=== PATIENT | female | born 1980 | race African-American/Black ===

== ENCOUNTER 2019-09-05 10:46 | Outpatient (RCR) | payer BC, MEDICAID, SELFPAY ==
[2019-08-08 12:30] VITALS: BP 110/64; PULSE 94
[2019-08-22 12:10] VITALS: BP 119/73; PULSE 91
[2019-08-29 12:31] VITALS: BP 122/76; PULSE 104
--- NOTE | ~2019-09-05 | US_ITS ---
EXAMINATION: US OB follow up DATE: 08/08/2019 13:02 INDICATION: Advanced maternal age. Third trimester . TECHNIQUE: Real-time ultrasound of the pelvis was performed. The interpreting radiologist was not pre sent for the study. COMPARISON: None. FINDINGS: There is a single living fetus in vertex presentation. The placenta is fundal and not low-lying. Fet al heart rate is 142 beats per minute (bpm). The amniotic fluid index is 14.1 cm, which is normal (5 th%-95%: 8.1-24.8 cm at 34 weeks estimated gestational age). The following biometric data were obtained: BPD: 8.0 cm -> 32 weeks 0 days Head circumference: 30.3 cm -> 33 weeks 5 days Abdominal circumference: 29.1 cm -> 33 weeks 1 days Femur length: 6.4 cm -> 33 weeks 0 days These measurements are concordant. Head circumference to abdominal circumference ratio: 1.04 (normal range 0.96-1.11). Estimated weight: 2108 g (+/-) 316 g. or 4 lbs. 10 oz. (+/-) 11 oz. IMPRESSION: 1. Single living fetus in vertex presentation with heart rate of 142 bpm. 2. Gestational age by ultrasound of 33 weeks 0 day(s) +/- 2 week(s) 2 day(s) with ultrasound estimate d date of delivery (CAN) of 09/26/2019. Estimated weight is 19th percentile by Hadlock criteria w hen 09/19/2019 is used as the CAN. Please correlate with clinical information or earlier ultrasounds f or most accurate CAN. 3. Normal amniotic fluid index of 14.1 cm. Reviewed, dictated and finalized at location A. IMPRESSION: 1. Single living fetus in vertex presentation with heart rate of 142 bpm. 2. Gestational age by ultrasound of 33 weeks 0 day(s) +/- 2 week(s) 2 day(s) wi th ultrasound estimated date of delivery (CAN) of 09/26/2019. Estimated samantha ght is 19th percentile by Hadlock criteria when 09/19/2019 is used as the CAN. P lease correlate with clinical information or earlier ultrasounds for most accur ate CAN. 3. Normal amniotic fluid index of 14.1 cm.
--- NOTE | ~2019-09-05 | US_ITS ---
EXAMINATION: US OB BPP wo non-stress DATE: 09/05/2019 11:44 INDICATION: Advanced maternal age, third trimester TECHNIQUE: Real-time pelvic ultrasound was performed. The interpreting radiologist was not present fo r the study. COMPARISON: 08/29/2019 FINDINGS: There is a single living fetus in vertex presentation. The placenta is fundal. heart rate is 13 7 beats per minute (bpm). Biophysical profile performed by the technologist: breathing (30 sec sustained breathing in 30 minutes): 2 out of 2 movement (3 gross body movements in 30 minutes): 2 out of 2 tone (one episode of xmxdicw-ikopwohct-dbbmxob limb movement): 2 out of 2 Amniotic fluid pocket (2 cm): 2 out of 2 Total score: 8 out of 8 IMPRESSION: 1. Single living fetus in vertex presentation. 2. Biophysical profile 8 out of 8. Reviewed, dictated and finalized at location A.
--- NOTE | ~2019-09-05 | US_ITS ---
EXAMINATION: US OB BPP wo non-stress DATE: 08/29/2019 12:07 CDT INDICATION: Evaluate well-being TECHNIQUE: Real-time transabdominal obstetric ultrasound. FINDINGS: 08/08/2019 There is a single living fetus in vertex presentation. The placenta is fundal without placenta previ a. cardiac activity and movement is noted with a heart rate of 144 beats per minute. Biophysical profile: breathin of 2 movement: 2 of 2 tone: 2 of 2 Amniotic flud pocket: 2 of 2 Total score: 8 of 8 IMPRESSION: 1. Single living intrauterine in vertex presentation. 2: Total biophysical profile score of 8/8. Reviewed, dictated and finalized at location A.
[2019-09-05 11:50] VITALS: BP 120/70; PULSE 94
== END 2019-09-27 13:44 | disposition home or self-care (01) ==
LOC: ANHOBOP 10:46
PROVIDERS: PCP Nurse Practitioner Family; Visit Provider Obstetrics & Gynecology
DX: O09.899 Supervision of other high risk pregnancies, unspecified trimester (principal); O09.513 Supervision of elderly primigravida, third trimester; Z3A.34 34 weeks gestation of pregnancy; Z3A.35 35 weeks gestation of pregnancy; Z3A.36 36 weeks gestation of pregnancy; Z3A.37 37 weeks gestation of pregnancy; Z3A.38 38 weeks gestation of pregnancy
CPT/HCPCS: 59025; 76816; 76819

== ENCOUNTER 2019-09-13 05:25 | Inpatient (IN) | payer BC, MEDICAID, SELFPAY ==
[2019-09-13] VITALS (175 sets, daily range): BP systolic 77–134; BP diastolic 30–88; PULSE 84–124; TEMP 36.6–37.3; O2SAT 93–100; BMI 33.5
[2019-09-13 06:27] LABS: Basophils Percent Auto 0.1 % (0.2-1.2); Eosinophils Absolute Auto 0.1 K/mm3 (0-0.3); Eosinophils Percent Auto 0.9 % (0-4.4); Hematocrit 40.5 % (37.0-47.0); Hemoglobin 13.7 g/dL (12.0-15.0); Immature Granulocyte Absolute 0.02 K/mm3 (0.00-0.031); Immature Granulocyte Percent A 0.3 % (0-0.5); Lymphocytes Absolute Auto 2.62 K/mm3 (0.9-3.2); Mean Corpuscular HGB Conc 33.8 g/dl (32-36); Mean Corpuscular Hemoglobin 29.3 pg (26-34); Mean Corpuscular Volume 86.5 fl (80-100); Mean Platelet Volume 11.7 fl (7.4-10.4); Monocytes Absolute Auto 0.5 K/mm3 (0.1-0.6); Monocytes Percent Auto 7.2 % (2.6-8.5); Neutrophils Absolute Auto 3.7 K/mm3 (1.3-6.7); Neutrophils Percent Auto 53.5 % (45.5-73.1); Platelet Count Result 150 k/mm3 (150-375); Red Blood Count 4.68 M/mm3 (4.2-5.4); Red Cell Distribution Width 14.3 % (11.5-14.5); White Blood Count 6.9 K/mm3 (4.5-10.0)
[2019-09-13] MEDS: LACTATED RINGERS 1,000 ML 125 ML IV CONT ×3 (06:38→20:54)
[2019-09-13] MEDS: OXYTOCIN 30 UNITS/NS 500 ML 30 UNITS/500 ML BAG IV CONT (06:39)
--- NOTE | 2019-09-13 06:41 | LDADM ---
This patient, Sandy White, was admitted to Labor/Delivery/Recovery 104 on 09/13/19 at 05:25. Plans for labor, pain management and were discussed with patient. Patient/family oriented to hospital policies and general routines including ID bracelet, bed and alarms, visiting hours, pain management, procedures, bathroom and other care routines, personal items, smoking policy, room service/diet and guest tray routines, infant security routines, and visiting hours. Patient/Family are encouraged to report perceived risks to care and to ask questions if they do not understand what they are told or what they should do. See OBIX for further documentation.
--- NOTE | 2019-09-13 08:00 | PM.IMHP ---
H&P: HPI History of Present Illness Chief complaint: Ind Narrative: Sandy White is a 39 yo @ 39.1wks for induction of labor 2/2 AMA. She reports occasional cramping/back pains. She feels good movment. No LOF or VB. Her is complicated by: 1. AMA s/p MFM consult and negative genetic 2. H/o daughter w/ T21 3. Elevated glucola, normal 3hr OGTT Review of Systems Constitutional: Constitutional: Denies body ache(s) and Denies night sweats Eyes: Eyes: Denies blurry vision Cardiovascular: Cardiovascular: Denies chest pain and Denies palpitations Respiratory: Respiratory: Denies cough and Denies dyspnea Gastrointestinal: Gastrointestinal: Denies nausea and Denies vomiting Genitourinary: Genitourinary: Denies vaginal discharge Musculoskeletal: Musculoskeletal: Reports back pain Neurologic: Denies headache(s) Psychiatric: Psychiatric: Denies anxiety PMFSH Past Medical History Medical History (Updated 09/13/19 @ 12:32 by Rut Chopra MD) Obesity (BMI 30-39.9) Family History Family History Mother No problems noted. Father Hypertension Father Cerebrovascular accident Daughter Down syndrome Father Tetralogy of Fallot Grandparent Diabetes mellitus Social History Social History Smoking status: Never smoker Substance use: never Gender identity (if verbalized by the patient): Female Spiritual care concerns: No Meds Home Medications and Allergies Home Medications Medication Instructions Recorded Confirmed Type PNV cmb#95-ferrous fumarate-FA 1 tablet PO DAILY 08/22/19 09/13/19 History [] Allergies Allergy/AdvReac Type Severity Reaction Status Date / Time No Known Allergies Allergy Verified 08/22/19 12:19 Vital Signs Vital Signs - 24 hr 09/13/19 05:47 09/13/19 06:00 09/13/19 06:15 Temperature Pulse Rate 89 92 87 Blood Pressure 103/67 118/75 122/71 09/13/19 06:30 09/13/19 06:46 09/13/19 07:00 Temperature 36.9 C Pulse Rate 87 89 84 Blood Pressure 119/82 120/73 113/72 09/13/19 07:15 09/13/19 07:30 09/13/19 07:45 Temperature Pulse Rate 93 85 90 Blood Pressure 112/79 101/55 L 100/62 Exam Const: General: comfortable and no acute distress Resp: Effort & Inspection: normal respiratory effort Cardio: Rate: regular rate GI: GI Palp: Yes Soft to palpation and No Tenderness to palpation present (GI) : Other: FHT's: 140's/ mod claribel/ + accels/ no decels - cat I TOCO: ctx's q 2 min Cervix: /-3 --> 06/19/-3 (1220) Membranes: arom, clear @ 1220 on 09/13/19 Neuro: Speech: normal speech Psych: Affect: normal affect H&P: Results Labs Labs: Short CBC 09/13/19 Range/Units 06:21 WBC 6.9 (4.5-10.0) K/mm3 Hgb 13.7 (12.0-15.0) g/dL Hct 40.5 (37.0-47.0) % Plt Count 150 (150-375) k/mm3 Assessment and Plan Assessment and plan (1) Encounter for induction of labor: Code(s): Z34.90 - Encounter for supervision of normal , unspecified, unspecified trimester Status: Acute (2) Advanced maternal age (AMA), 40 years or greater: Status: Acute Additional Plan - Admit to L&D for induction of labor - Continue Pitocin protocol to obtain ctx's q2-3 min - Continuous monitoring; currently reassuring, category 1 - AROM, clear @ 1220 on 09/13/19 - GBS negative - Anesthesia PRN pain; pt currently desires to go all natural
--- NOTE | 2019-09-13 08:11 | WPDANESEPP ---
Anes - Eval Pre Procedure Procedure: Labor epidural Date/Time: 09/13/19 08:11 Surgeon: Rut Chopra M.D. Preop Diagnosis: pain during labor Pre Op Diagnosis: Ind Patient Data Age: 39 Gender: F Height: 1.57 m Weight: 83 kg Last Vital Signs Temp 36.9 C 09/13/19 06:30 Pulse 88 09/13/19 08:00 BP 102/63 09/13/19 08:00 Allergies Allergy/AdvReac Type Severity Reaction Status Date / Time No Known Allergies Allergy Verified 08/22/19 12:19 Home Medications Medication Instructions Recorded Confirmed Type PNV cmb#95-ferrous fumarate-FA 1 tablet PO DAILY 08/22/19 09/13/19 History [] Laboratory Tests 09/13/19 09/13/19 09/13/19 06:21 06:21 06:21 WBC 6.9 K/mm3 K/mm3 (4.5-10.0) RBC 4.68 M/mm3 M/mm3 (4.2-5.4) Hgb 13.7 g/dL g/dL (12.0-15.0) Hct 40.5 % % (37.0-47.0) MCV 86.5 fl fl (80-100) MCH 29.3 pg pg (26-34) MCHC 33.8 g/dl g/dl (32-36) RDW 14.3 % % (11.5-14.5) Plt Count 150 k/mm3 k/mm3 (150-375) MPV 11.7 fl H fl (7.4-10.4) Immature Gran % (Auto) 0.3 % % (0-0.5) Neut % (Auto) 53.5 % % (45.5-73.1) Lymph % (Auto) 38.0 % % (18.3-44.2) Boundary % (Auto) 7.2 % % (2.6-8.5) Eos % (Auto) 0.9 % % (0-4.4) Baso % (Auto) 0.1 % L % (0.2-1.2) Lymph # (Auto) 2.62 K/mm3 K/mm3 (0.9-3.2) Boundary # (Auto) 0.5 K/mm3 K/mm3 (0.1-0.6) Eos # (Auto) 0.1 K/mm3 K/mm3 (0-0.3) Baso # (Auto) 0.0 K/mm3 K/mm3 (0.0-0.1) Abs Immat Gran (auto) 0.02 K/mm3 K/mm3 (0.00-0.031) Absolute Neuts (auto) 3.7 K/mm3 K/mm3 (1.3-6.7) Absolute Nucleated RBC 0.0 K/mm3 K/mm3 (0.0-0.012) Nucleated RBC % 0.0 % % (0.0-0.2) RPR Pending Blood Type A Positive Antibody Screen Negative Patient hx anesthesia problems: none Family hx anesthesia problems: none PMFSH Past Medical History Medical History (Updated 09/13/19 @ 08:11 by Rosita Oliver CRNA) Obesity (BMI 30-39.9) Family History Family History Mother No problems noted. Father Hypertension Father Cerebrovascular accident Daughter Down syndrome Father Tetralogy of Fallot Grandparent Diabetes mellitus Social History Social History Smoking status: Never smoker Substance use: never Gender identity (if verbalized by the patient): Female Spiritual care concerns: No Exam Day of Procedure 09/13/19 08:11
[2019-09-13 09:48] LABS: Rapid Plasma Reagin Non-Reactive (NonReactive)
[2019-09-13] MEDS: SODIUM CHLORIDE 0.9% IV 300 ML I-UTERINE (17:11)
[2019-09-14] VITALS (22 sets, daily range): BP systolic 92–139; BP diastolic 50–80; PULSE 80–188; RESP 16; TEMP 36.6–36.9; O2SAT 98–100
--- NOTE | 2019-09-14 00:34 | PM.OBPRVD ---
OB - Delivery Note Procedure Delivery date: 09/14/19 Procedure: Patient progressed to complete dilation and began pushing with good maternal effort. she delivered the head over an intact perineum. no nuchal cord was palpated and the shoulders and body delivered without complications. the infant was immediately placed skin to skin. the mouth and nose were bulb suctioned and the baby had spontaneous cry. the umbilical cord was then clamped and cut. a section of the umbilical cord was collected for cord gases and the remaining cord blood was collected for typing. with Pitocin running and gentle traction on the cord, the placenta delivered without complications. good uterine tone and minimal bleeding were noted. the cervix, vagina, and perineum were inspected. bilateral periurethral lacerations were noted and reapproximated using interrupted 3 0 Vicryl stitches, and good hemostasis was noted. sponge, lap, needle, and instrument counts were correct at the end procedure. mom and baby were left bonding in the birthing suite in a stable condition. events: Labor Induction Induction method: per pitocin protocol Delivery augmentation: rupture of membranes Delivery monitor: external FHT and internal uterine Route of delivery: Laceration description: Periurethral - 1st Degree Delivery repair: vicryl Specimen: Yes Estimated blood loss (mL): 100 Anesthesia type: Epidural Disposition: floor Baby Date of : 09/14/19 Time of : 00:15 Weeks of gestation at delivery: 39 gender: Female Weight (pounds): 7 Weight (ounces): 2 presentation: vertex position: Left Occiput Anterior Placenta delivery description: Expressed cord vessel description: 3 Vessels score one minute: 9 score five minutes: 9
[2019-09-14] MEDS: WITCH HAZEL 40 PADS 1 PAD TOPICAL (00:50)
[2019-09-14] MEDS: BENZOCAINE 20% AER SPR (*SP) 56 GM CAN 1 SPRAY TOPICAL (00:50)
[2019-09-14] MEDS: OXYTOCIN 30 UNITS/NS 500 ML 30 UNITS/500 ML BAG 125 UNITS (00:51)
[2019-09-14] MEDS: LANOLIN (LANSINOH) 7.5 GM CREAM 1 APPLIC TOPICAL (00:51)
--- NOTE | 2019-09-14 06:10 | PC.NURSE ---
Report given and care turned over to James Pa RN
--- NOTE | 2019-09-14 13:15 | PC.NURSE ---
PT arrived on unit via wheelchair accompanied by and taken to room 290. Pt oriented to room and surrounding area. PT introductions made and plan of care discussed per post , pain management, breast feeding, and daily care activities.Welcome packet reviewed and discussed. PT verbalized understanding of such care.
[2019-09-15 05:34] LABS: Hematocrit 37.1 % (37.0-47.0); Hemoglobin 12.2 g/dL (12.0-15.0)
--- NOTE | 2019-09-15 07:00 | PC.NURSE ---
PT introductions made and plan of care discussed per post , pain management, breast feeding, daily care activities and pending discharge to home. PT verbalized understanding of such care.
[2019-09-15 09:00] VITALS: BP 107/70; PULSE 75; RESP 18; TEMP 37.1; O2SAT 100
--- NOTE | 2019-09-15 09:41 | WPDANLDPN2 ---
Anes-Prog Note L&D Date/Time: 09/15/19 09:41 Comfortable throughout: labor and delivery Neuraxial method: epidural Epidural/Spinal procedure site: clean & non-tender Neuro status: Neuro function grossly intact. Cardiovascular status: normal Respiratory status: normal Airway patency: baseline Mental status: baseline Post-Op hydration status: normal Vital Signs: Last Vital Signs Temp 36.6 C 09/14/19 19:19 Pulse 80 09/14/19 19:19 Resp 16 09/14/19 19:19 BP 98/68 L 09/14/19 19:19 Pulse Ox 98 09/14/19 03:10 Post-procedural complaints: none Patient feedback: Patient satisfied with anesthetic care.
[2019-09-15] MEDS: TETANUS,DIPHTHERIA,AC PERTUSSIS ADULT (0.5 ML) BOOSTRIX IM (09:56)
[2019-09-15] MEDS: DOCUSATE SODIUM 100 MG CAPSULE PO ×2 (09:57→17:11)
[2019-09-15] MEDS: MULTIVIT/MIN/PREN/FOL AC/IRON TABLET 1 TAB PO (09:57)
[2019-09-15 09:58] VITALS: PULSE 75; RESP 18; O2SAT 100
[2019-09-15] MEDS: IBUPROFEN 600 MG TABLET PO ×2 (09:58→17:11)
--- NOTE | 2019-09-15 12:00 | PC.NURSE ---
Mother called out for assist with latch, due to pain with feeding. Both nipples are tender, skin is intact. Reviewed infant feeding cues, frequencies, duration of feedings, feeding elimination flow sheet, and signs of adequate intake. Demonstrated stimulation techniques to wake for feeding. Assisted with infant to breast. Mother was attempting to breast in cradle allowing to attempt to self attach with a shallow latch. Reviewed positioning/alignment in cross cradle, holding breast in U hold and guided asymmetrical latch on. Discussed rational for each. Infant was able to latch correctly with first attempt. Infant nursed eagerly, with steady draws and frequent swallowing noted. Reviewed signs of a correct latch, effective nursing and suck swallow ratio. Infant was able to maintain latch without discomfort to mother. Nipple care reviewed. Discussed holding breast during entire feeding to assist maintaining deep latch. Suggested to stimulate infant to keep awake and nursing effectively for increased intake. Instructed mother to call out for RN assistance if she is unable to latch for feeding or she has discomfort with nursing. Instructed feeding should be initiated three hours from start of last feeding or if feeding cues are noted before. Mother voiced understanding of information shared.
--- NOTE | 2019-09-15 12:03 | PM.OBPNVD ---
OB - PN: Subj Subjective Date/time seen: 09/15/19 12:02 Sandy is a 39yo now P2002 s/p , PPD#1 Sandy reports she is doing well today. She reports her pain is controlled. She is tolerating regular diet. She is voiding and passing flatus. She is ambulating w/o s/sx of anemia. Her bleeding is picking supervisor. She is breast feeding. She would like to go home today. OB - PN: Obj Data Labs CBC & Chem 7: 09/15/19 04:47 Labs: Laboratory Results - last 24 hr 09/15/19 04:47 Hgb 12.2 Hct 37.1 OB - PN A/P Assessment and Plan (1) Advanced maternal age (AMA), 40 years or greater: Status: Acute (2) Normal vaginal delivery: Code(s): O80 - Encounter for full-term uncomplicated delivery Status: Acute Plan day: 1 Plan: routine care and discharge home Comments: - follow up in 4 weeks - discharge instructions discussed: Return to ER for N/V/severe abd pain, heavy vaginal bleeding, s/sx of PEC, pelvic rest, take medications as prescribed. Time Spent With Patient Time: Total time spent is greater than 50% in coordination of care (as documented) at patient's floor/unit and/or counseling patient: Review of Systems Constitutional: Constitutional: Denies chills Cardiovascular: Cardiovascular: Denies rapid heart rate Respiratory: Respiratory: Denies cough and Denies dyspnea Gastrointestinal: Gastrointestinal: Denies abdominal pain, Denies nausea and Denies vomiting Genitourinary: Genitourinary: Reports pelvic pain Neurologic: Denies headache(s) Exam Const: General: comfortable, no acute distress, alert and awake Orientation/consciousness: patient oriented x3 Chest: Breast/axilla inspection: normal inspection of the breasts Resp: Effort & Inspection: normal respiratory effort Auscultation: clear to auscultation bilaterally Cardio: Rate: regular rate GI: Auscultation: normal bowel sounds : Other: fundus firm at umbilicus Psych: Appearance: grossly normal Affect: normal affect Attitude: cooperative
--- NOTE | 2019-09-15 17:36 | PC.NURSE ---
PT discharged to home ambulatory accompanied by infant to waiting car. Follow up appts confirmed
--- NOTE | 2019-09-15 18:58 | PC.NURSE ---
Addendum entered by Eriberto Asif RN 09/15/19 18:59: Actual time of discharge instructions was 1700 Original Note: Pt received discharge instructions per protocol and verbalized understanding of such care. Patient was given the opportunity to view the discharge video Mother & Baby Care, The First Two Weeks and to ask questions. Patient declined viewing the video and has been given the mother/baby guide for home reference.
[2019-09-16 08:13] VITALS: BP 116/82; PULSE 82; RESP 20; TEMP 36.8; O2SAT 100
--- NOTE | 2019-09-26 11:02 | PM.OBDSVD ---
DS: Admitting Diagnosis Admitting Diagnosis Admitting Diagnosis: Encounter for supervision of normal , unspecified, third trimester DS: Discharge Diagnosis Discharge Diagnosis (1) Advanced maternal age (AMA), 40 years or greater: Status: Acute (2) Obesity (BMI 30-39.9): Code(s): E66.9 - Obesity, unspecified Status: Acute (3) Normal vaginal delivery: Code(s): O80 - Encounter for full-term uncomplicated delivery Status: Acute OB - DS: Summary OB Procedures : NST and Ultrasound OB Procedures Intrapartum: Spontaneous Vag Delivery OB Procedures: : None Peripartum Data Infant Delivery Method: Natural Vaginal complications: none [place] 1: Gender: Female Disposition of : home Status at Discharge Functional status at discharge: independent ambulation Time Spent with Patient Time attestation: Total time spent providing and/or coordinating discharge services: Exam Const: General: comfortable, no acute distress, alert and awake Orientation/consciousness: patient oriented x3 Resp: Effort & Inspection: normal respiratory effort Cardio: Rate: regular rate GI: Inspection: non-distended GI Palp: Yes Soft to palpation and No Tenderness to palpation present (GI) Auscultation: normal bowel sounds Psych: Appearance: grossly normal Affect: normal affect Thought content: Yes Normal thought content present Judgement: Good judgement present (Psych) DS: Data Data Completed and Pending Completed studies during hospitalization: Pending at discharge 09/14/19 00:19 Surgical [PTH] Routine Discharge Plan Discharge Attending physician on discharge: Rut Chopra Discharging Clinician: Rut Chopra Anticipated Discharge Date/Time: 09/15/19 16:00 Patient Disposition: Home, Self-Care Activity: pelvic rest Diet: regular Discharge Instructions: Education: Mom and Baby Guide Given to: Mother Follow-Up: Call your delivering provider's office for an appointment to be seen in: 4 Weeks Mom [facility] the follow-up appointment. Appointment Date/Time: September 16, 2019 at 8:00 am What to expect at your follow-up visit: Blood Pressure Check Call [phone] if you are unable to keep your appointment time. BREAST CARE: 1. Wear a snug supportive bra. 2. For engorgement discomfort: Breast Feeding: A. Apply warm moist washcloths B. Express milk as needed to relieve engorgement C. Wear loose clothing Bottle Feeding: A. May apply ice packs 3. For sore nipples: A. Identify correct latch-on B. Apply warm moist washcloths before and after nursing C. Air dry nipples after nursing D. May apply Lansinoh cream to nipples PERINEAL CARE: 1. Until bleeding stops, use your geno bottle after urinating 2. Change your pad frequently throughout the day 3. You may take sitz baths several times a day (fill your bathtub with warm water and soak for 20 minutes.) Do NOT bathe in the water 4. No tub baths until seen by your physician - You may shower ACTIVITY: 1. Rest as much as possible. 2. Do not exercise or lift anything heavier than your baby (such as laundry or other children.) 3. Avoid stairs or driving as much as possible. 4. Do not put anything into the vagina. No douching, tampons, or sexual activity until seen by physician. NOTIFY PHYSICIAN IF YOU HAVE ANY QUESTIONS OR IF ANY OF THE FOLLOWING SYMPTOMS OCCUR: 1. If your perineum becomes red, swollen, or more painful than what you have experienced in the hospital. 2. If your vaginal bleeding becomes foul smelling. 3. If your vaginal bleeding becomes more heavy than a period or if your bleeding changes from pink to bright red. However, you may pass an occasional walnut-sized clot once or twice for the first week . 4. If you
== END 2019-09-15 17:36 | disposition home or self-care (01) | DRG 807 ==
LOC: ANHLDR 05:33 → ANHOBPP 09-14 03:05 → ANHOB2 09-14 13:42
PROVIDERS: Admitting Provider Obstetrics & Gynecology; PCP Nurse Practitioner Family; Visit Provider Obstetrics & Gynecology
DX: O99.214 Obesity complicating childbirth (principal); Z37.0 Single live birth; Z3A.39 39 weeks gestation of pregnancy; E66.9 Obesity, unspecified; O71.82 Other specified trauma to perineum and vulva
CPT/HCPCS: 36415; 85014; 85018; 85025; 86592; 86850; 86900; 86901; 88307; 90715; A9270; J2590; J2795; J3010; J7030; J7120

== ENCOUNTER 2020-02-02 13:36 | Outpatient (CLI) | payer BC, OTHER, SELFPAY ==
--- NOTE | ~2020-02-02 | MMUS_ITS ---
EXAMINATION: MM diagnostic bianca BI w salud, US breast RT limited HISTORY: Palpable lump of the upper inner right breast. TECHNIQUE: Craniocaudal, mediolateral, and mediolateral oblique 3-D tomosynthesis images of the breas ts were performed and synthetic 2-D images were generated. CAD analysis was submitted and interpreted . High resolution limited right breast ultrasound was performed. COMPARISON: None, baseline BREAST PARENCHYMAL COMPOSITION: There are scattered areas of fibroglandular density. FINDINGS: MAMMOGRAPHIC FINDINGS: There is no evidence of suspicious mass, calcification, or architectural distortion to suggest malig oziel. No mammographic correlate is identified for the reported palpable abnormality of the right fabi ast. ULTRASOUND: There is no evidence of focal abnormal solid or cystic lesion in the vicinity of the reported palpabl e abnormality of concern. IMPRESSION: 1. No specific mammographic or sonographic correlate is identified for the reported palpable abnormal ity of concern. Further evaluation at this time should be based on clinical assessment. Continued fol low-up physical examination is recommended. 2. Recommend routine screening mammography in one year. BI-RADS Category 1: Negative Reviewed, dictated and finalized at location A. UTER SUPPORT SPECIALIST IMPRESSION: 1. No specific mammographic or sonographic correlate is identified for the repo rted palpable abnormality of concern. Further evaluation at this time should be based on clinical assessment. Continued follow-up physical examination is franko mmended. 2. Recommend routine screening mammography in one year. BI-RADS Category 1: Negative
== END 2020-02-02 13:37 | disposition home or self-care (01) ==
LOC: ANHIMG 13:38
PROVIDERS: PCP Nurse Practitioner Family; Visit Provider Obstetrics & Gynecology
DX: N63.10 Unspecified lump in the right breast, unspecified quadrant (principal)
CPT/HCPCS: 76642; 77062; 77066; G0279

== ENCOUNTER 2021-04-22 08:14 | Outpatient (RCR) | payer BC, MEDICAID, SELFPAY ==
[2021-03-04 09:56] VITALS: BP 104/58; PULSE 87
[2021-03-11 09:53] VITALS: BP 112/65; PULSE 82
[2021-03-18 11:05] VITALS: BP 113/74; PULSE 96
[2021-03-26 10:08] VITALS: BP 116/72; PULSE 82
[2021-04-02 14:52] VITALS: BP 110/64; PULSE 90
[2021-04-08 17:03] VITALS: BP 111/66; PULSE 92
[2021-04-15 08:34] VITALS: BP 115/68; PULSE 92
[2021-04-22] VITALS (7 sets, daily range): BP systolic 103; BP diastolic 63; PULSE 86–94; O2SAT 99–100
--- NOTE | ~2021-04-22 | US_ITS ---
EXAMINATION: US OB follow up w BPP EXAM DATE: 03/18/2021 11:10 INDICATION: Advanced maternal age. Estimated weight. 3rd trimester. TECHNIQUE: Pelvic obstetrical transabdominal sonogram was performed by a technologist. There are mu ltiple grayscale and Doppler images available for interpretation. There are no earlier studies of is gestation for comparison. FINDINGS: There is a single fetus identified in vertex presentation with a heart rate of 145 beats pe r minute. The placenta is located in the anterior position. There is no sonographic evidence of retr oplacental hemorrhage identified. The amniotic fluid index is 20.9 centimeters, which is normal. Cer vical canal length measured at 6 cm, no funneling. BIOPHYSICAL PROFILE (performed by the technologist) breathing (30 sec sustained breathing in 30 minutes): 2 out of 2 movement (3 gross body movements in 30 minutes): 2 out of 2 tone (one episode of ceatlfq-pqpotyqug-qbajscv limb movement): 2 out of 2 Amniotic fluid pocket (2 cm): 2 out of 2 Total score: 8 out of 8. BIOMETRIC DATA: Biparietal diameter (BPD): 8.5 cm --------------> 34 weeks 1 day. Head circumference (HC): 30.9 cm ---------------> 34 weeks 4 days. Abdominal circumference (AC): 30.2 cm ---------> 34 weeks 1 day. Femur length (FL): 6.8 cm ------------------------> 35 weeks 1 day. These measurements are concordant. HC/AC ratio is 1.02 (The 5th -- 95th percentile range is 0.94-1.11. Estimated weight is 2435 g +/- 365 g. This is the 70th percentile when the currently reported clinical gestation age 33 weeks 4 days, clinical estimated date of delivery ([facility]) 05/02/2021 is us ed. estimated gestational age based on measurements from this exam is 34 weeks 4 days, with an estimated date of delivery ([facility]) 04/25. IMPRESSION: 1. Single fetus with heart rate of 145 bpm. 2. Normal biophysical profile score of 8 out of 8. 3. Estimated weight 243 5 g, 70th percentile using 33 weeks 4 days gestational age. 4. Normal SHANITA 20.9 cm. Reviewed, dictated and finalized at location B. ASSEMBLER IMPRESSION: 1. Single fetus with heart rate of 145 bpm. 2. Normal biophysical profile score of 8 out of 8. 3. Estimated weight 243 5 g, 70th percentile using 33 weeks 4 days gesta tional age. 4. Normal SHANITA 20.9 cm.
--- NOTE | ~2021-04-22 | US_ITS ---
EXAMINATION: US OB follow up DATE: 04/02/2021 15:23 INDICATION: IUGR during third trimester TECHNIQUE: Real-time ultrasound of the pelvis was performed. The interpreting radiologist was not pre sent for the study. COMPARISON: None. FINDINGS: There is a single living fetus in vertex presentation. The placenta is anterior. card iac activity and movement are noted. heart rate is 142 beats per minute (bpm). The amniot ic fluid index is 16.2 cm which is normal. The following biometric data were obtained: Biparietal diameter (BPD): 8.7 cm; head circumference (HC): 32.3 cm; abdominal circumference (AC): 34 .7 cm; femur length (FL): 7.1 cm. These measurements are concordant. Estimated weight is 3227 g +/- 483 g, which correlates with the 91st percentile when 05/02/2021 is used as estimated date of delivery. As single measurements, these parameters are each equal to the following estimated gestational ages w ith ranges of +/- 2 standard deviations: BPD: 35 weeks 3 days ( 32 weeks 2 days - 38 weeks 3 days). HC: 36 weeks 4 days ( 33 weeks 6 days - 39 weeks 2 days). AC: 38 weeks 5 days ( 35 weeks 4 days - 41 weeks 5 days). FL: 36 weeks 2 days ( 33 weeks 3 days - 39 weeks 2 days). estimated gestational age based solely on measurements from this exam is 36 weeks 5 days +/- 2 weeks 4 days. IMPRESSION: 1. Single living fetus in vertex presentation. 2. Estimated weight is 3227 g +/- 483 g, which correlates with the 91st percentile when 05/02/19 22 is used as estimated date of delivery. 3. Normal amniotic fluid index. Reviewed, dictated and finalized at location F. NSED ELECTRICIAN IMPRESSION: 1. Single living fetus in vertex presentation. 2. Estimated weight is 3227 g +/- 483 g, which correlates with the 91st p ercentile when 05/02/2021 is used as estimated date of delivery. 3. Normal amniotic fluid index.
--- NOTE | ~2021-04-22 | US_ITS ---
EXAMINATION: US OB follow up DATE: 03/26/2021 09:48 INDICATION: Intrauterine growth restriction. Third trimester. TECHNIQUE: Real-time ultrasound of the pelvis was performed. COMPARISON: Ultrasound 03/18/2021 FINDINGS: There is a single living fetus in breech presentation. The placenta is anterior. heart rate is 148 beats per minute (bpm). The amniotic fluid index is 16.3 cm, which is normal. The following biometric data were obtained: Biparietal diameter (BPD): 8.9 cm; head circumference (HC): 32.4 cm; abdominal circumference (AC): 32 .0 cm; femur length (FL): 6.8 cm. These measurements are concordant. Estimated weight is 2751 g +/- 413 g, which correlates with the 75th percentile when 05/02/21 is used as estimated date of delivery. As single measurements, these parameters are each equal to the following estimated gestational ages w ith ranges of +/- 2 standard deviations: BPD: 35 weeks 6 days (32 weeks 5 days - 38 weeks 6 days). HC: 36 weeks 5 days (34 weeks 0 days - 39 weeks 3 days). AC: 36 weeks 0 days (33 weeks 0 days - 38 weeks 6 days). FL: 34 weeks 6 days (31 weeks 6 days - 37 weeks 6 days). estimated gestational age based solely on measurements from this exam is 35 weeks 6 days +/- 2 weeks 4 days. IMPRESSION: 1. Single living fetus in breech presentation. 2. Estimated weight is 2751 g +/- 413 g, which correlates with the 75th percentile when 2 is used as estimated date of delivery. Reviewed, dictated and finalized at location A. DESK TEAM LEADER IMPRESSION: 1. Single living fetus in breech presentation. 2. Estimated weight is 2751 g +/- 413 g, which correlates with the 75th percentile when 05/02/21 is used as estimated date of delivery.
--- NOTE | ~2021-04-22 | US_ITS ---
EXAMINATION: US OB follow up w BPP DATE: 04/08/2021 17:46 INDICATION: Advanced maternal age. Third trimester. TECHNIQUE: Real-time pelvic ultrasound was performed. COMPARISON: Ultrasound 04/02/2021 FINDINGS: There is a single living fetus in vertex presentation. The placenta is anterior. heart rate is 136 beats per minute (bpm). The amniotic fluid index is 10.3 cm, which is normal. The following biometric data were obtained: Biparietal diameter (BPD): 9.2 cm; head circumference (HC): 32.6 cm; abdominal circumference (AC): 35 .8 cm; femur length (FL): 7.6 cm. These measurements are concordant. Estimated weight is 3624 g +/- 544 g, which correlates with the 97th percentile when 05/02/21 is used as estimated date of delivery. As single measurements, these parameters are each equal to the following estimated gestational ages: BPD: 37 weeks 3 days. HC: 37 weeks 0 days. AC: 39 weeks 5 days. FL: 38 weeks 5 days. estimated gestational age based solely on measurements from this exam is 38 weeks 2 days +/- 2 weeks 5 days. Biophysical profile performed by the technologist: breathing (30 sec sustained breathing in 30 minutes): 2 out of 2 movement (3 gross body movements in 30 minutes): 2 out of 2 tone (one episode of ljyiqdb-ldozukxcb-lsasfhs limb movement): 2 out of 2 Amniotic fluid pocket (2 cm): 2 out of 2 Total score: 8 out of 8 IMPRESSION: 1. Single living fetus in vertex presentation. 2. Large for gestational age. Estimated weight is 3624 g +/- 544 g, which correlates with the 9 7th percentile when 05/02/21 is used as estimated date of delivery. 3. Biophysical profile 8 out of 8. Reviewed, dictated and finalized at location A. STER IMPRESSION: 1. Single living fetus in vertex presentation. 2. Large for gestational age. Estimated weight is 3624 g +/- 544 g, which correlates with the 97th percentile when 05/02/21 is used as estimated date of delivery. 3. Biophysical profile 8 out of 8.
== END 2021-04-26 20:37 | disposition home or self-care (01) ==
LOC: ANHOBOP 08:14
PROVIDERS: PCP Nurse Practitioner Family; Visit Provider Obstetrics & Gynecology
DX: O09.513 Supervision of elderly primigravida, third trimester (principal); Z3A.31 31 weeks gestation of pregnancy; Z3A.32 32 weeks gestation of pregnancy; Z3A.33 33 weeks gestation of pregnancy; Z3A.34 34 weeks gestation of pregnancy; Z3A.35 35 weeks gestation of pregnancy; Z3A.36 36 weeks gestation of pregnancy
CPT/HCPCS: 59025; 76816; 76819; Q9957

== ENCOUNTER 2021-04-25 05:36 | Inpatient (IN) | payer BC, MEDICAID, SELFPAY ==
[2021-04-25] VITALS (67 sets, daily range): BP systolic 64–130; BP diastolic 25–90; PULSE 85–143; RESP 16–18; TEMP 36.6–37.2; O2SAT 98–100; BMI 33.0
[2021-04-25 06:44] LABS: Basophils Percent Auto 0.2 % (0.2-1.2); Eosinophils Absolute Auto 0.1 K/mm3 (0-0.3); Eosinophils Percent Auto 1.4 % (0-4.4); Hematocrit 37.4 % (37.0-47.0); Hemoglobin 12.6 g/dL (12.0-15.0); Immature Granulocyte Absolute 0.04 K/mm3 (0.00-0.031); Immature Granulocyte Percent A 0.6 % (0-0.5); Lymphocytes Absolute Auto 2.34 K/mm3 (0.9-3.2); Lymphocytes Percent Auto 35.6 % (18.3-44.2); Mean Corpuscular HGB Conc 33.7 g/dl (32-36); Mean Platelet Volume 11.7 fl (7.4-10.4); Monocytes Absolute Auto 0.5 K/mm3 (0.1-0.6); Monocytes Percent Auto 7.3 % (2.6-8.5); Neutrophils Absolute Auto 3.6 K/mm3 (1.3-6.7); Neutrophils Percent Auto 54.9 % (45.5-73.1); Platelet Count Result 153 k/mm3 (150-375); Red Cell Distribution Width 14.9 % (11.5-14.5); White Blood Count 6.6 K/mm3 (4.5-10.0)
[2021-04-25] MEDS: OXYTOCIN 30 UNITS/NS 500 ML 30 UNITS/500 ML BAG IV CONT (06:46)
[2021-04-25] MEDS: LACTATED RINGERS 1,000 ML 125 ML IV CONT ×3 (06:47→15:33)
[2021-04-25] MEDS: AMPICILLIN 2 GM/NS 100 ML 2 GM/100 ML BAG IVPB (06:48)
--- NOTE | 2021-04-25 07:01 | LDADM ---
This patient, Sandy White, was admitted to Labor/Delivery/Recovery 105 on 04/25/21 at 05:36. Plans for labor, pain management and were discussed with patient. Patient/family oriented to hospital policies and general routines including ID bracelet, bed and alarms, visiting hours, pain management, procedures, bathroom and other care routines, personal items, smoking policy, room service/diet and guest tray routines, infant security routines, and visiting hours. Patient/Family are encouraged to report perceived risks to care and to ask questions if they do not understand what they are told or what they should do. See OBIX for further documentation.
--- NOTE | 2021-04-25 07:09 | PM.IMHP ---
H&P: HPI History of Present Illness Date/Time: 04/25/21 07:09 Sandy is a 40yo @ 39.0wks (CAN 05/02/21) who presents for induction of labor. She is having contractions. No bleeding or leakage of fluid. Good movement. She has had regular care as well as testing. Her is complicated by: - AMA; NIPT LR female - First child with downs syndrome - GBS bacteruria Chief Complaint: induction of labor Review of Systems Review of Systems: All systems reviewed & are unremarkable except as noted in HPI and below (HPI) [facility] Past Medical History Medical History Obesity (BMI 30-39.9) Family History Family History Mother No problems noted. Father Hypertension Father Cerebrovascular accident Daughter Down syndrome Father Tetralogy of Fallot Grandparent Diabetes mellitus Social History Social History Smoking status: Never smoker Alcohol intake: never Substance use: never Gender identity (if verbalized by the patient): Female Sexual Orientation (if Verbalized by the Patient): Straight or Heterosexual Spiritual care concerns: No Meds Home Medications and Allergies Home Medications Medication Instructions Recorded Confirmed Type PNV cmb#95-ferrous fumarate-FA 1 tablet PO DAILY 08/22/19 04/19/21 History [] aspirin 81 mg tablet,delayed 81 mg PO DAILY 04/03/21 04/19/21 History release ferrous sulfate 325 mg (65 mg 325 mg PO DAILY 04/03/21 04/19/21 History iron) tablet Allergies Allergy/AdvReac Type Severity Reaction Status Date / Time No Known Allergies Allergy Verified 04/19/21 08:39 Vital Signs Vital Signs - 24 hr 04/25/21 06:38 04/25/21 07:00 Pulse Rate 88 88 Blood Pressure 118/77 117/77 Exam Const: General: cooperative, comfortable and no acute distress Nutritional Appearance: obese Resp: Effort & Inspection: normal respiratory effort Cardio: Rate: regular rate GI: Inspection: normal to inspection GI Palp: No abdominal tenderness and Yes Soft to palpation : Other: FHT's: 130's/mod claribel/ + accels/ no decels - cat 1 TOCO: ctx's q4min Cervix: 50/-3 Membranes: intact presentation: cephalic H&P: Results Labs Labs: Short CBC 04/25/21 Range/Units 06:38 WBC 6.6 (4.5-10.0) K/mm3 Hgb 12.6 (12.0-15.0) g/dL Hct 37.4 (37.0-47.0) % Plt Count 153 (150-375) k/mm3 Assessment and Plan Assessment and plan (1) Advanced maternal age (AMA), 40 years or greater: Status: Acute (2) Encounter for induction of labor: Code(s): Z34.90 - Encounter for supervision of normal , unspecified, unspecified trimester Status: Acute Additional Plan - Admitted to L&D for induction of labor - Pitocin per protocol - Continuous monitoring; currently reassuring - Ampicillin for GBS + - Anesthesia consult PRN pain
--- NOTE | 2021-04-25 07:40 | WPDHPUPDATE1 ---
History and Physical Update Update Date/Time: 04/25/21 07:40 History and Physical has been reviewed, including an updated exam of the patient. There are NO changes in the patient's condition. Risks, benefits, and alternatives have been discussed and questions answered. Patient agrees to proceed with procedure.
--- NOTE | 2021-04-25 07:55 | WPDANESEPP ---
Anes - Eval Pre Procedure Procedure: labor epidural Date/Time: 04/25/21 07:55 Pre Op Diagnosis: IOL Patient Data Age: 40 Gender: F Height: 1.57 m Weight: 82 kg Last Vital Signs Pulse 88 04/25/21 07:00 BP 117/77 04/25/21 07:00 Allergies Allergy/AdvReac Type Severity Reaction Status Date / Time No Known Allergies Allergy Verified 04/19/21 08:39 Home Medications Medication Instructions Recorded Confirmed Type PNV cmb#95-ferrous fumarate-FA 1 tablet PO DAILY 08/22/19 04/19/21 History [] aspirin 81 mg tablet,delayed 81 mg PO DAILY 04/03/21 04/19/21 History release ferrous sulfate 325 mg (65 mg 325 mg PO DAILY 04/03/21 04/19/21 History iron) tablet Laboratory Tests 04/25/21 04/25/21 04/25/21 06:38 06:38 06:38 WBC 6.6 K/mm3 K/mm3 (4.5-10.0) RBC 4.20 M/mm3 M/mm3 (4.2-5.4) Hgb 12.6 g/dL g/dL (12.0-15.0) Hct 37.4 % % (37.0-47.0) MCV 89.0 fl fl (80-100) MCH 30.0 pg pg (26-34) MCHC 33.7 g/dl g/dl (32-36) RDW 14.9 % H % (11.5-14.5) Plt Count 153 k/mm3 k/mm3 (150-375) MPV 11.7 fl H fl (7.4-10.4) Immature Gran % (Auto) 0.6 % H % (0-0.5) Neut % (Auto) 54.9 % % (45.5-73.1) Lymph % (Auto) 35.6 % % (18.3-44.2) [place] % (Auto) 7.3 % % (2.6-8.5) Eos % (Auto) 1.4 % % (0-4.4) Baso % (Auto) 0.2 % % (0.2-1.2) Lymph # (Auto) 2.34 K/mm3 K/mm3 (0.9-3.2) [place] # (Auto) 0.5 K/mm3 K/mm3 (0.1-0.6) Eos # (Auto) 0.1 K/mm3 K/mm3 (0-0.3) Baso # (Auto) 0.0 K/mm3 K/mm3 (0.0-0.1) Abs Immat Gran (auto) 0.04 K/mm3 H K/mm3 (0.00-0.031) Absolute Neuts (auto) 3.6 K/mm3 K/mm3 (1.3-6.7) Absolute Nucleated RBC 0.0 K/mm3 K/mm3 (0.0-0.012) Nucleated RBC % 0.0 % % (0.0-0.2) RPR Pending Blood Type A Positive Antibody Screen Negative Patient hx anesthesia problems: none Family hx anesthesia problems: none Results Review: All pre-operative results and documents have been reviewed as part of the pre-operative evaluation. [facility] Past Medical History Medical History Obesity (BMI 30-39.9) Family History Family History Mother No problems noted. Father Hypertension Father Cerebrovascular accident Daughter Down syndrome Father Tetralogy of Fallot Grandparent Diabetes mellitus Social History Social History Smoking status: Never smoker Alcohol intake: never Substance use: never Gender identity (if verbalized by the patient): Female Sexual Orientation (if Verbalized by the Patient): Straight or Heterosexual Spiritual care concerns: No Exam Day of Procedure 04/25/21 07:55 Patient weight: obese Heart: regular rate and rhythm Lungs: normal air movement Airway: Mallampati scale Neurological: alert and oriented
[2021-04-25] MEDS: AMPICILLIN 1 GM/NS 50 ML 1 GM/50 ML BAG IVPB ×3 (10:49→19:04)
--- NOTE | 2021-04-25 10:57 | PM.OBPNLAB ---
Pain Control Date/time seen: 04/25/21 10:57 Pain control: tolerating well Pelvic Exam Dilation (cm): 4 Effacement (%): 70 station: -2 Amniotic membrane status: Ruptured (AROM, clear 1055) Contractions Monitor mode: External Contraction frequency: 3 Contraction pattern: Regular Status status: Category l Assessment and Plan Pitocin rate (mU/min): 8 Assessment: induction ongoing Plan: continuous present management
--- NOTE | 2021-04-25 12:56 | PM.OBPNLAB ---
Pain Control Date/time seen: 04/25/21 12:56 Pain control: epidural Pelvic Exam Dilation (cm): 4 Effacement (%): 70 station: -2 Amniotic membrane status: Ruptured (AROM, clear 1055) Contractions Monitor mode: Internal (placed this exam) Contraction frequency: 2 Contraction pattern: Regular Status status: Category l Assessment and Plan Pitocin rate (mU/min): 12 Assessment: induction ongoing Plan: continuous present management
--- NOTE | 2021-04-25 16:33 | PM.OBPNLAB ---
Pain Control Date/time seen: 04/25/21 16:33 Pain control: epidural Pelvic Exam Dilation (cm): 5 Effacement (%): 80 station: -3 Amniotic membrane status: Ruptured (AROM, clear 1055) Contractions Monitor mode: Internal Contraction frequency: 4 Contraction pattern: Regular Intrauterine tone measurement: 50 Status status: Category l Assessment and Plan Pitocin rate (mU/min): 24 Assessment: induction ongoing Plan: continuous present management Comments: - cephalic presentation confirmed; ROP
--- NOTE | 2021-04-25 18:12 | PM.OBPNLAB ---
Pain Control Date/time seen: 04/25/21 18:12 Pain control: epidural Pelvic Exam Dilation (cm): 8 Effacement (%): 90 station: -1 Amniotic membrane status: Ruptured (AROM, clear 1055) Contractions Monitor mode: Internal Contraction frequency: 2 Contraction pattern: Regular Intrauterine tone measurement: 50 Status status: Category ll Comments: occasional mild variable decelerations Assessment and Plan Pitocin rate (mU/min): 24 Assessment: active labor Plan: continuous present management
--- NOTE | 2021-04-25 20:28 | PM.OBPRVD ---
OB - Delivery Note Procedure Delivery date: 04/25/21 events: Labor Induction Intrapartal events: Deceleration Induction method: per pitocin protocol Delivery augmentation: rupture of membranes Delivery monitor: external FHT and internal uterine Route of delivery: Laceration Description: None Specimen: Yes (placenta) Quantitative Blood Loss (ml): 300 Anesthesia type: Epidural Disposition: floor Baby Date of : 04/25/21 Time of : 20:15 Weeks of gestation at delivery: 39 Infant gender: Female Weight (pounds): 8 Weight (ounces): 1 presentation: vertex position: Left Occiput Posterior Placenta delivery description: Expressed cord vessel description: 3 Vessels score one minute: 8 score five minutes: 9 Narrative: Sandy progressed to complete dilation and began pushing. She pushed for approximately 1.5 hours and the baby was noted to be in occiput posterior position. She delivered the head over intact perineum. No nuchal cord was palpated. She delivered the shoulders and body without complications. The was immediately placed skin to skin and had spontaneous cry. Delayed cord clamping was performed. The umbilical cord was then clamped and cut. A segment of the cord was collected for cord gases. The remaining cord blood was collected for typing. With gentle downward traction on the cord and Pitocin running, the placenta delivered without complications. Bimanual exam was performed and good uterine tone with minimal bleeding was noted. Patient was examined and no lacerations were noted. Sponge, lap, instrument, and needle counts were correct at the end the procedure. Mom and baby were left in the birthing suite in stable condition. [facility] Delivery Billing Delivery Delivery: Delivery Charge
[2021-04-25] MEDS: OXYTOCIN 30 UNITS/NS 500 ML 30 UNITS/500 ML BAG 125 UNITS IV CONT (20:43)
[2021-04-25] MEDS: diphenhydrAMINE HCl INJ 50 MG/ML VIAL IV PUSH (21:00)
[2021-04-25] MEDS: IBUPROFEN 600 MG TABLET PO (22:58)
[2021-04-25] MEDS: ACETAMINOPHEN 325 MG TABLET 650 MG PO (22:59)
[2021-04-25] MEDS: WITCH HAZEL 40 PADS 1 PAD TOPICAL (23:00)
[2021-04-25] MEDS: BENZOCAINE 20% AER SPR (*SP) 56 GM CAN 1 SPRAY TOPICAL (23:00)
[2021-04-26 03:31] LABS: Hematocrit 37.8 % (37.0-47.0); Hemoglobin 12.6 g/dL (12.0-15.0)
--- NOTE | 2021-04-26 08:15 | PM.OBPRVD ---
OB - Delivery Note Procedure events: Labor Induction Intrapartal events: Deceleration Anesthesia type: Epidural Baby Date of : 04/25/21 Time of : 20:15 Weeks of gestation at delivery: 39 Infant gender: Female Weight (pounds): 8 Weight (ounces): 1 presentation: vertex position: Left Occiput Posterior Placenta delivery description: Expressed score one minute: 8 score five minutes: 9 [facility] Delivery Billing Delivery Delivery: Delivery Charge
[2021-04-26 08:20] VITALS: BP 110/69; PULSE 93; RESP 18; TEMP 36.9; O2SAT 100
--- NOTE | 2021-04-26 08:33 | P.PNOB_ITS ---
OB - PN: Subj Subjective Date/time seen: 04/26/21 08:33 Narrative: PPD#1 Sandy reports doing well today. 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 Her pain is controlled, vulvar swelling/hemorrhoids present but improving. She is tolerating regular diet, voiding, passing gas, and ambulating without issues. She is bottle feeding. She would like to go home tomorrow morning. OB - PN: Obj Data Labs CBC & Chem 7: 04/26/21 02:58 Labs: Laboratory Results - last 24 hr 04/26/21 02:58 Hgb 12.6 Hct 37.8 OB - PN A/P Assessment and Plan (1) Normal vaginal delivery: Code(s): O80 - Encounter for full-term uncomplicated delivery Status: Acute Plan day: 1 Plan: routine care and discharge home (tomorrow) Comments: - Pelvic rest; take meds as prescribed - ER return precautions: fever, n/v/abd pain, bleeding, HTN Time Spent With Patient Time: Total time spent is greater than 50% in coordination of care (as documented) at patient's floor/unit and/or counseling patient: Review of Systems Constitutional: Constitutional: Denies chills, Denies fever(s) and Denies headache(s) Eyes: Eyes: Denies change in vision ENT: Denies dizziness and Denies headache(s) Cardiovascular: Cardiovascular: Denies chest pain, Denies palpitations and Denies dyspnea Respiratory: Respiratory: Denies cough and Denies dyspnea Gastrointestinal: Gastrointestinal: Denies nausea and Denies vomiting Neurologic: Denies dizziness and Denies headache(s) Endocrine: Endocrine: Denies palpitations Exam Const: General: cooperative, comfortable and no acute distress Orientation/consciousness: patient oriented x3 Resp: Effort & Inspection: normal respiratory effort Auscultation: clear to auscultation bilaterally Cardio: Rate: regular rate GI: Inspection: non-distended GI Palp: No abdominal tenderness and Yes Soft to palpation Auscultation: normal bowel sounds : Other: fundus firm Skin: General skin exam: normal color Neuro: General: patient oriented x3 Extrem: General: normal to inspection Psych: Appearance: grossly normal Affect: normal affect Attitude: cooperative
[2021-04-26] MEDS: MULTIVIT/MIN/PREN/FOL AC/IRON TABLET 1 TAB PO (09:10)
[2021-04-26] MEDS: IBUPROFEN 600 MG TABLET PO ×3 (09:10→23:24)
[2021-04-26] MEDS: TETANUS,DIPHTHERIA,AC PERTUSSIS ADULT (0.5 ML) BOOSTRIX IM (09:12)
[2021-04-26 09:25] LABS: Rapid Plasma Reagin Non-Reactive (NonReactive)
--- NOTE | 2021-04-26 10:20 | PM.OBDSVD ---
DS: Admitting Diagnosis Discharge Date 04/27/21 Admitting Diagnosis Induction of labor DS: Discharge Diagnosis Discharge Diagnosis (1) Normal vaginal delivery: Code(s): O80 - Encounter for full-term uncomplicated delivery Status: Acute OB - DS: Summary OB Procedures : NST and Ultrasound OB Procedures Intrapartum: Spontaneous Vag Delivery OB Procedures: : None Peripartum Data Infant Delivery Method: Natural Vaginal Laceration Description: None complications: none 1: Gender: Female Disposition of : home Status at Discharge Functional status at discharge: independent ambulation Overall status at discharge: patient is back to baseline Time Spent with Patient Time attestation: Total time spent providing and/or coordinating discharge services: Time spent: Less than 30 minutes Exam Const: General: cooperative, comfortable and no acute distress Nutritional Appearance: obese Orientation/consciousness: patient oriented x3 Resp: Effort & Inspection: normal respiratory effort Auscultation: clear to auscultation bilaterally Cardio: Rate: regular rate GI: Inspection: non-distended GI Palp: No abdominal tenderness and Yes Soft to palpation Auscultation: normal bowel sounds : Other: fundus firm Skin: General skin exam: normal color Neuro: General: patient oriented x3 Extrem: General: normal to inspection Psych: Appearance: grossly normal Affect: normal affect Attitude: cooperative DS: Data Data Completed and Pending Pending studies at discharge: Pending at discharge 04/25/21 21:56 Surgical [PTH] Routine Labs on day of discharge: Labs from last 24 hours 04/26/21 04/25/21 02:58 06:38 Hgb 12.6 Hct 37.8 RPR Non-reactive Discharge Plan Discharge Attending physician on discharge: Rut Chopar Discharging Clinician: Rut Chopra Anticipated Discharge Date/Time: 04/27/21 11:00 Patient Disposition: Home, Self-Care Activity: may shower, may drive after 2 weeks and pelvic rest Diet: regular Patient Instructions: Antibiotic Form Stand Alone Forms: General Discharge Information Follow-up/Referrals: Rut Chopra MD [Physician] - 4 Weeks Discharge Medications: New acetaminophen [Mapap (acetaminophen)] 325 mg Tablet 650 mg PO Q6H PRN (Reason: Mild Pain (1-3) Or Headache) 10 Days Qty: 60 RF: 0 hydrocodone-acetaminophen 5-325 mg Tablet 1 tablet PO Q3H PRN (Reason: Pain Rated 6 Or Greater) 3 Days Qty: 15 RF: 0 docusate sodium 100 mg Capsule 100 mg PO BID PRN (Reason: Constipation) 30 Days Qty: 60 RF: 0 ibuprofen 600 mg Tablet 600 mg PO Q6H PRN (Reason: Cramping) 10 Days Qty: 40 RF: 0 Continued PNV cmb#95-ferrous fumarate-FA [] 28 mg iron- 800 mcg Tablet 1 tablet PO DAILY 90 Days Qty: 90 RF: 0 Discontinued aspirin [Adult Aspirin Regimen] 81 mg tablet,delayed release (DR/EC) 81 mg PO DAILY RF: 0 ferrous sulfate 325 mg (65 mg iron) tablet 325 mg PO DAILY RF: 0 Date of admission: 04/25/21 05:36 Primary Care Provider: DarioKaterin Admitting Provider: Rut Chopra Attending physician on admission: Rut Chopra Condition: Stable
[2021-04-26 12:34] VITALS: BP 111/64; PULSE 98; RESP 18; TEMP 37; O2SAT 100
[2021-04-26 15:45] VITALS: BP 114/72; PULSE 88; RESP 16; TEMP 36.4; O2SAT 100
[2021-04-26] MEDS: DOCUSATE SODIUM 100 MG CAPSULE PO (17:00)
[2021-04-26 19:00] VITALS: BP 105/62; PULSE 87; RESP 18; TEMP 36.9
[2021-04-27] MEDS: IBUPROFEN 600 MG TABLET PO (05:48)
[2021-04-27 07:45] VITALS: BP 99/60; PULSE 65; RESP 16; TEMP 36.9; O2SAT 99
[2021-04-30 09:43] VITALS: BP 134/80; PULSE 60; RESP 20; TEMP 36.7; O2SAT 99
--- NOTE | 2021-05-05 10:36 | PM.OBDSVD ---
DS: Admitting Diagnosis Discharge Date 04/27/21 Admitting Diagnosis induction of labor ama DS: Discharge Diagnosis Discharge Diagnosis (1) Normal vaginal delivery: Code(s): O80 - Encounter for full-term uncomplicated delivery Status: Acute OB - DS: Summary OB Procedures : NST and Ultrasound OB Procedures Intrapartum: Spontaneous Vag Delivery OB Procedures: : None Peripartum Data Infant Delivery Method: Natural Vaginal Laceration Description: None complications: none [place] 1: Gender: Female Disposition of : home Status at Discharge Functional status at discharge: independent ambulation Overall status at discharge: patient is back to baseline Time Spent with Patient Time attestation: Total time spent providing and/or coordinating discharge services: Exam Const: General: cooperative, comfortable and no acute distress Orientation/consciousness: patient oriented x3 Resp: Effort & Inspection: normal respiratory effort Auscultation: clear to auscultation bilaterally Cardio: Rate: regular rate GI: Inspection: non-distended GI Palp: No abdominal tenderness and Yes Soft to palpation Auscultation: normal bowel sounds : Other: fundus firm Skin: General skin exam: normal color Neuro: General: patient oriented x3 Extrem: General: normal to inspection Psych: Appearance: grossly normal Affect: normal affect Attitude: cooperative DS: Data Data Completed and Pending Completed studies during hospitalization: Pending at discharge 04/25/21 21:56 Surgical [PTH] Routine Discharge Plan Discharge Attending physician on discharge: Rut Chopra Consulting providers: Albino Rios Discharging Clinician: Rut Chopra Anticipated Discharge Date/Time: 04/27/21 11:00 Patient Disposition: Home, Self-Care Activity: may shower, may drive after 2 weeks and pelvic rest Diet: regular Discharge Instructions: Education: Mom and Baby Guide Given to: Mother Follow-Up: Call your delivering provider's office for an appointment to be seen in: 4 Weeks Mom and baby should come to the [facility] for the follow-up appointment. Appointment Date/Time: April 30, 2021 at 9:00 am What to expect at your follow-up visit: Blood Pressure Check Physical Assessment Call [phone] if you are unable to keep your appointment time. BREAST CARE: * Wear a snug supportive bra. * For engorgement discomfort: Bottle Feeding: * May apply ice packs EPISIOTOMY/PERINEAL CARE: * Until bleeding stops, use your geno bottle after urinating * Change your pad frequently throughout the day * You may take sitz baths several times a day (fill your bathtub with warm water and soak for 20 minutes.) Do NOT bathe in the water * No tub baths until seen by your physician - You may shower ACTIVITY: * Rest as much as possible. * Do not exercise or lift anything heavier than your baby (such as laundry or other children.) * Avoid stairs or driving as much as possible. * Do not put anything into the vagina. No douching, tampons, or sexual activity until seen by physician. NOTIFY PHYSICIAN IF YOU HAVE ANY QUESTIONS OR IF ANY OF THE FOLLOWING SYMPTOMS OCCUR: * If your episiotomy or incision becomes red, swollen, or more painful than what you have experienced in the hospital. * If your vaginal bleeding becomes foul smelling. * If your vaginal bleeding becomes more heavy than a period or if your bleeding changes from pink to bright red. However, you may pass an occasional walnut-sized clot once or twice for the first week . * If you experience a sharp, shooting pain in you calves. * If you discover a hard, reddened area on your breast or if you experience flu-like symptoms. DIET: * Eat regular, well-balanced meals. * Drink plenty of fluids daily. If , drink to thirst. Stand Alone
== END 2021-04-27 12:10 | disposition home or self-care (01) | DRG 806 ==
LOC: ANHLDR 05:42 → ANHOB2 23:58
PROVIDERS: Admitting Provider Obstetrics & Gynecology; PCP Nurse Practitioner Family; Visit Provider Obstetrics & Gynecology
DX: O76 Abnormality in fetal heart rate and rhythm complicating labor and delivery (principal); O22.43 Hemorrhoids in pregnancy, third trimester; Z37.0 Single live birth; O99.214 Obesity complicating childbirth; E66.9 Obesity, unspecified; O99.824 Streptococcus B carrier state complicating childbirth; Z3A.39 39 weeks gestation of pregnancy
CPT/HCPCS: 36415; 85014; 85018; 85025; 86592; 86850; 86900; 86901; 88307; 90715; A9270; J0290; J1200; J2590; J2795; J7120

== ENCOUNTER 2021-05-06 12:35 | Outpatient (CLI) | payer BC, MEDICAID, SELFPAY ==
--- NOTE | ~2021-05-06 | XR_ITS ---
EXAMINATION: XR chest 2V DATE: 05/06/2021 12:50 INDICATION: -induced hypertension TECHNIQUE: Frontal and lateral views of the chest are obtained COMPARISON: None available FINDINGS: There is a small right pleural effusion. Airspace opacities are present in the right lung b ase. There is a mild interstitial pattern of the lower lung zones. No pneumothorax is identified. The cardiomediastinal silhouette is normal. IMPRESSION: 1. Small right pleural effusion with likely passive atelectasis of the right lower lobe. 2. Mild interstitial pattern of the lower lung zones, possible mild pulmonary edema. Reviewed, dictated and finalized at location A. [employer]TER IMPRESSION: 1. Small right pleural effusion with likely passive atelectasis of the right lo wer lobe. 2. Mild interstitial pattern of the lower lung zones, possible mild pulmonary e radha.
[2021-05-06 13:21] LABS: Basophils Percent Auto 0.3 % (0.2-1.2); Eosinophils Absolute Auto 0.1 K/mm3 (0-0.3); Eosinophils Percent Auto 1.9 % (0-4.4); Hematocrit 42.9 % (37.0-47.0); Hemoglobin 13.9 g/dL (12.0-15.0); Immature Granulocyte Absolute 0.02 K/mm3 (0.00-0.031); Immature Granulocyte Percent A 0.3 % (0-0.5); Lymphocytes Absolute Auto 2.18 K/mm3 (0.9-3.2); Lymphocytes Percent Auto 34.3 % (18.3-44.2); Mean Corpuscular HGB Conc 32.4 g/dl (32-36); Mean Corpuscular Hemoglobin 29.1 pg (26-34); Mean Corpuscular Volume 89.9 fl (80-100); Mean Platelet Volume 10.3 fl (7.4-10.4); Monocytes Absolute Auto 0.4 K/mm3 (0.1-0.6); Monocytes Percent Auto 6.3 % (2.6-8.5); Neutrophils Absolute Auto 3.6 K/mm3 (1.3-6.7); Neutrophils Percent Auto 56.9 % (45.5-73.1); Platelet Count Result 243 k/mm3 (150-375); Red Blood Count 4.77 M/mm3 (4.2-5.4); Red Cell Distribution Width 14.8 % (11.5-14.5); White Blood Count 6.4 K/mm3 (4.5-10.0)
[2021-05-06 13:40] LABS: Alanine Aminotransferase 209 U/L (4-35); Albumin Level 3.3 g/dL (3.5-5.1); Alkaline Phosphatase 149 U/L (38-126); Anion Gap 1 mmol/L (8-16); Aspartate Amino Transferase 65 U/L (14-36); Bilirubin,Total 0.8 mg/dL (0.2-1.3); Blood Urea Nitrogen 11 mg/dL (7-17); Calcium 8.3 mg/dL (8.4-10.2); Carbon Dioxide 30 mmol/L (22-30); Chloride 107 mmol/L (98-107); Estimated Glomerular Filt Rate > 60; Glucose 82 mg/dL (65-110); Potassium 4.7 mmol/L (3.4-5.0); Sodium 138 mmol/L (137-145)
== END 2021-05-06 12:36 | disposition home or self-care (01) ==
LOC: ANHIMG 12:38
PROVIDERS: PCP Nurse Practitioner Family; Visit Provider Obstetrics & Gynecology
DX: O13.9 Gestational [pregnancy-induced] hypertension without significant proteinuria, unspecified trimester (principal); R06.02 Shortness of breath; J90 Pleural effusion, not elsewhere classified; J98.11 Atelectasis; R91.8 Other nonspecific abnormal finding of lung field
CPT/HCPCS: 36415; 71046; 80053; 85025

== ENCOUNTER 2021-05-06 17:07 | Observation (INO) | payer BC, MEDICAID, SELFPAY ==
[2021-05-06] VITALS (38 sets, daily range): BP systolic 104–196; BP diastolic 66–102; PULSE 46–93; TEMP 37–37.2; O2SAT 93–100
--- NOTE | 2021-05-06 17:20 | PM.IMHP ---
H&P: HPI History of Present Illness Date/Time: 05/06/21 17:20 Sandy is a 40yo now [id number] s/p on 04/25/21 complicated by AMA and PP gestational HTN. She presented for a BP visit today and endorsed chest pressure/pain for the last 5-7 days. She also endorses significant lower extremity swelling and difficulty breathing when laying flat during that time. BP was normal in clinic. She was sent from clinic for CXR and blood work. Her CXR was concerning for mild pulmonary edema and small right pleural effusion. Her LFTs were elevated. She denies vision changes, KWON. She has been eating, drinking, and using the restroom normally. Normal vaginal bleeding. No fever, chills, cough, or URI symptoms. Chief Complaint: chest pain Review of Systems Constitutional: Constitutional: Reports as per HPI Eyes: Eyes: Denies change in vision Cardiovascular: Cardiovascular: Reports orthopnea and Reports slow heart rate Comments: chest pressure Gastrointestinal: Gastrointestinal: Denies change in bowel habits Genitourinary: Genitourinary: Denies abnormal vaginal bleeding Neurologic: Denies dizziness and Denies headache(s) [facility] Past Medical History Medical History Obesity (BMI 30-39.9) Family History Family History Mother No problems noted. Father Hypertension Father Cerebrovascular accident Daughter Down syndrome Father Tetralogy of Fallot Grandparent Diabetes mellitus Social History Social History Smoking status: Never smoker Alcohol intake: never Substance use: never Gender identity (if verbalized by the patient): Female Sexual Orientation (if Verbalized by the Patient): Straight or Heterosexual Spiritual care concerns: No Meds Home Medications and Allergies Home Medications Medication Instructions Recorded Confirmed Type PNV cmb#95-ferrous fumarate-FA 1 tablet PO DAILY 90 Days #90 04/26/21 04/19/21 Rx [] tablet acetaminophen [Mapap 650 mg PO Q6H PRN 10 Days #60 04/26/21 Rx (acetaminophen)] tablet docusate sodium 100 mg PO BID PRN 30 Days #60 cap 04/26/21 Rx hydrocodone-acetaminophen 1 tablet PO Q3H PRN 3 Days #15 04/26/21 Rx tablet ibuprofen 600 mg PO Q6H PRN 10 Days #40 04/26/21 Rx tablet Allergies Allergy/AdvReac Type Severity Reaction Status Date / Time No Known Allergies Allergy Verified 05/06/21 11:34 Exam Const: General: cooperative, comfortable and no acute distress Resp: Effort & Inspection: normal respiratory effort Auscultation: diminished lung sounds on the right in the lower lung mora GI: GI Palp: No abdominal tenderness and Yes Soft to palpation Skin: General skin exam: normal color Neuro: General: patient oriented x3 Extrem: General: edema (2+) bilateral Psych: Appearance: grossly normal Affect: normal affect Attitude: cooperative Assessment and Plan Assessment and plan (1) Severe pre-eclampsia with complication: Code(s): O14.15 - Severe pre-eclampsia, complicating the puerperium Status: Acute (2) Pulmonary edema: Qualifiers: Chronicity: acute Qualified Code(s): J81.0 - Acute pulmonary edema Code(s): J81.1 - Chronic pulmonary edema Status: Acute Additional Plan - On arrival to L&D pt noted to have multiple severe range BPs, but bradycardic to 40's - [facility] contacted: I spoke with Dr. Oliveira @ 1192 who recommended: covid testing, keppra 1000mg IV to prevent seizures, procardia 10mg with lasix 20mg IV-- recheck BP in 20 min, if elevated give procardia 20mg (plan to hold beta blockers and magnesium sulfate due to pulm edema and bradycardia) - Plan to stabilize BP's and call back which at that point, we will then transfer her to [facility]
--- NOTE | 2021-05-06 17:29 | ECG_ITS ---
Measurements Intervals [place] Rate: 48 P: 19 WV: 136 QRS: 101 QRSD: 84 T: 67 QT: 450 QTc: 405 Interpretive Statements SINUS BRADYCARDIA POSSIBLE LEFT ATRIAL ENLARGEMENT BORDERLINE R WAVE PROGRESSION, ANTERIOR LEADS BORDERLINE T WAVE ABNORMALITY- HIGH LATERAL LEADS BASELINE WANDER- I, II, AVR, AVL, AVF ABNORMAL ECG Electronically Signed On 05-06-2021 20:15:03 PILE OPERATOR by Tristen Salazar D.O.
--- NOTE | 2021-05-06 17:40 | PC.NURSE ---
Pt complaining of chest pain and pressure and difficulty breathing when lying down.
--- NOTE | 2021-05-06 17:45 | PC.NURSE ---
Dr. Chopra on unit. Informed of BP. Orders received and going to bedside to assess pt.
[2021-05-06] MEDS: FUROSEMIDE INJ 40 MG/4 ML VIAL 20 MG IV PUSH (17:58)
--- NOTE | 2021-05-06 18:00 | PC.NURSE ---
Dr. Chopra called [facility] to give report. Unable to accept pt at this time, but will accept when stable.
[2021-05-06] MEDS: levETIRAcetam 1000MG/NACL100ML 1,000 MG/100 ML BAG 400 MG IVPB (18:11)
[2021-05-06] MEDS: NIFEdipine 10 MG CAPSULE PO (18:11)
--- NOTE | 2021-05-06 18:18 | WPDHPUPDATE1 ---
History and Physical Update Update Date/Time: 05/06/21 18:18 History and Physical has been reviewed, including an updated exam of the patient. There are NO changes in the patient's condition. Risks, benefits, and alternatives have been discussed and questions answered. Patient agrees to proceed with procedure.
[2021-05-06] MEDS: NIFEdipine 10 MG CAPSULE 20 MG PO (18:37)
--- NOTE | 2021-05-06 19:00 | PC.NURSE ---
Dr. Chopra called [facility] to give report. Pt accepted.
--- NOTE | 2021-05-06 19:02 | P.PNOB_ITS ---
OB - PN: Subj Subjective Date/time seen: 05/06/21 18:56 s/p lasix 20mg IV, keppra 1000mg IV, procardia 10mg PO and procardia 20mg PO BP's now in the normal range Pt denies CP, SOB, KWON, vision changes. [facility] Transport team contacted and Dr. Lundberg [facility] accepted patient at 1900 OB - PN A/P Assessment and Plan (1) Severe pre-eclampsia with complication: Code(s): O14.15 - Severe pre-eclampsia, complicating the puerperium Status: Acute Assessment and Plan: - Transferring to [facility] Time Spent With Patient Time: Total time spent is greater than 50% in coordination of care (as documented) at patient's floor/unit and/or counseling patient: Review of Systems Review of Systems: All systems reviewed & are unremarkable except as noted in HPI and below (HPI)
--- NOTE | 2021-05-06 19:06 | PC.NURSE ---
Report given to Baylee at [facility].
[2021-05-06 19:16] LABS: EDCOVIDSCREEN Negative (Negative)
--- NOTE | 2021-05-06 19:55 | PC.NURSE ---
Transport team here to assume care.
--- NOTE | 2021-05-06 20:05 | PC.NURSE ---
All charting by Lorena Calix RN actually done by James Cadena RN.
== END 2021-05-06 20:05 | disposition short-term general hospital (02) ==
LOC: ANHOBPP 17:14
PROVIDERS: Admitting Provider Obstetrics & Gynecology; PCP Nurse Practitioner Family; Visit Provider Obstetrics & Gynecology
DX: O14.15 Severe pre-eclampsia, complicating the puerperium (principal)
CPT/HCPCS: 36415; 87426; 93005; 96365; 96375; A9270; C9803; G0378; G0379; J1940; J1953

== ENCOUNTER 2021-08-12 16:06 | Outpatient (CLI) | payer BC, MEDICAID, SELFPAY ==
[2021-08-12 16:57] LABS: Beta HCG Quantitative < 2.39 mIU/ML
== END 2021-08-12 16:07 | disposition home or self-care (01) ==
LOC: ANHLAB 16:09
PROVIDERS: PCP Nurse Practitioner Family; Visit Provider Obstetrics & Gynecology
DX: N92.6 Irregular menstruation, unspecified (principal)
CPT/HCPCS: 36415; 84702

== ENCOUNTER 2022-10-17 07:28 | Outpatient (CLI) | payer OTHER, MEDICAID, SELFPAY ==
--- NOTE | ~2022-10-17 | MM_ITS ---
EXAMINATION: MM screening bianca BI w salud HISTORY: Screening mammogram TECHNIQUE: Craniocaudal and mediolateral oblique 3-D tomosynthesis images were obtained and synthetic 2-D images were generated. CAD analysis was submitted and interpreted. COMPARISON: 02/02/2020 BREAST PARENCHYMAL COMPOSITION:The breasts are heterogeneously dense, which may obscure small masses. FINDINGS: No suspicious mass, calcification, or architectural distortion are identified in either fabi ast to suggest malignancy. There has been no suspicious interval change. IMPRESSION: No mammographic evidence of malignancy. Recommend routine screening mammography in one year. BI-RADS Category 1: Negative Reviewed, dictated and finalized at location .
== END 2022-10-17 07:29 | disposition home or self-care (01) ==
PROVIDERS: PCP Nurse Practitioner Family; Visit Provider Obstetrics & Gynecology
DX: Z12.31 Encounter for screening mammogram for malignant neoplasm of breast (principal)
CPT/HCPCS: 77063; 77067

== ENCOUNTER 2023-08-19 16:27 | Outpatient (CLI) | payer OTHER, SELFPAY | END 2023-08-19 16:28 | disposition home or self-care (01) | LOC: ANHLAB 16:29 | PROVIDERS: PCP Nurse Practitioner Family; Visit Provider Obstetrics & Gynecology | DX: N92.6 Irregular menstruation, unspecified (principal) | CPT/HCPCS: 36415; 84702 ==

== ENCOUNTER 2023-10-07 13:31 | Outpatient (CLI) | payer OTHER, SELFPAY ==
[2023-10-07 14:35] LABS: Beta HCG Quantitative < 2.39 mIU/ML
== END 2023-10-07 13:32 | disposition home or self-care (01) ==
LOC: ANHLAB 13:33
PROVIDERS: PCP Nurse Practitioner Family; Visit Provider Obstetrics & Gynecology
DX: N91.2 Amenorrhea, unspecified (principal)
CPT/HCPCS: 36415; 84702